=== PATIENT | male | born 1940 | race Caucasian/White ===

== ENCOUNTER 2020-09-17 18:29 | Inpatient (IN) | payer OTHER ==
[2020-09-17 18:36] VITALS: BMI 27.3
[2020-09-17 20:08] LABS: BASO % 0.8 % (0-2.0); EOS % 3.1 % (0-4.5); HEMOGLOBIN 10.3 GM/dL (11.7-16.9); LYMPH % 26.5 % (8-40); MCHC 31.2 g/dl (32.0-35.9); MEAN CELL VOLUME 76.8 fl (80-96); MONO % 8.1 % (3.8-10.2); NEUT % 61.5 % (42.8-82.8); PLATELET COUNT 281 K/MM3 (134-434); RBC 4.29 M/mm3 (4.00-5.60); RDW 16.1 % (11.9-15.9); WHITE BLOOD COUNT 10.8 K/mm3 (4.0-10.0)
[2020-09-17 20:15] LABS: INR 0.96 (0.83-1.09); PROTHROMBIN TIME (PATIENT) 11.6 SEC (9.7-13.0)
[2020-09-17] MEDS ORDERED: FOLIC ACID INJECTION - 1 MG, THIAMINE HCL 100 MG, MULTIVIT INJECTION ADULT 10 ML in SOD... IVPB ONE (20:25)
[2020-09-17 20:47] LABS: POTASSIUM 5.8 mmol/L (3.5-5.1)
[2020-09-17 20:49] LABS: CALCIUM 8.9 mg/dL (8.5-10.1)
[2020-09-17 20:50] LABS: ALBUMIN 3.4 g/dl (3.4-5.0)
[2020-09-17 20:53] LABS: CREATININE 1.4 mg/dL (0.55-1.3)
[2020-09-17 20:54] LABS: BILIRUBIN,TOTAL 0.4 mg/dL (0.2-1); TOT PROT 6.7 g/dl (6.4-8.2)
[2020-09-17 20:55] LABS: BLOOD UREA NITROGEN 26.6 mg/dL (7-18)
[2020-09-17 21:01] LABS: PH,URINE 5.5 (5.0-8.0); URINE APPEARANCE CLEAR; URINE BILIRUBIN NEGATIVE (NEGATIVE); URINE COLOR YELLOW; URINE GLUCOSE (UA) NEGATIVE (NEGATIVE); URINE KETONE TRACE (NEGATIVE); URINE LEUK ESTERASE NEGATIVE (NEGATIVE); URINE NITRITE NEGATIVE (NEGATIVE); URINE PROTEIN TRACE (NEGATIVE); URINE UROBILINOGEN 0.2 mg/dL (0.2-1.0)
[2020-09-17] MEDS ORDERED: LACTATED RINGERS SOLUTION 1000 ML INFUS.BAG IV ONE (21:47)
[2020-09-17] MEDS ORDERED: SODIUM CHLORIDE 1,000 ML IV SCH (22:00)
[2020-09-18] MEDS ORDERED: LORazepam 2 MG/ML SDV VIAL IVPUSH ONE ×2 (00:15→00:34)
[2020-09-18] MEDS ORDERED: LORazepam 2 MG/ML SDV VIAL ONE (00:36)
[2020-09-18 01:01] LABS: CREATININE 1.3 mg/dL (0.55-1.3)
[2020-09-18 01:03] LABS: CALCIUM 8.2 mg/dL (8.5-10.1)
[2020-09-18] MEDS ORDERED: DEXTROSE 50%-WATER - 25 GM/50 ML VIAL IVPUSH ONE (02:19)
[2020-09-18] MEDS ORDERED: DEXTROSE 50%-WATER 25 GM/50 ML DISP.SYRIN ONE (02:20)
[2020-09-18] MEDS: DEXTROSE 5%-0.45% SALINE 1,000 ML IV SCH (04:14)
[2020-09-18] MEDS ORDERED: MAGNESIUM SULF 50% (8.12 MEQ/2 ML-1 GM VIAL) IVPB ONE (05:08)
[2020-09-18] MEDS ORDERED: MAGNESIUM SULFATE IN WATER 2 GM/50 ML IVPB IVPB ONE (05:09)
[2020-09-18 05:37] LABS: POTASSIUM 5.1 mmol/L (3.5-5.1)
[2020-09-18 05:39] LABS: ALBUMIN 2.9 g/dl (3.4-5.0); BLOOD UREA NITROGEN 29.3 mg/dL (7-18); CALCIUM 8.6 mg/dL (8.5-10.1)
[2020-09-18 05:42] LABS: CREATININE 1.3 mg/dL (0.55-1.3)
[2020-09-18 05:43] LABS: PHOSPHOROUS 3.2 mg/dL (2.5-4.9)
[2020-09-18 05:44] LABS: BILIRUBIN,TOTAL 0.4 mg/dL (0.2-1); TOT PROT 5.8 g/dl (6.4-8.2)
[2020-09-18] MEDS ORDERED: CARBIDOPA LEVODOPA PO SCH (06:00)
[2020-09-18 06:15] LABS: BASO % 0.6 % (0-2.0); EOS % 4.3 % (0-4.5); HEMATOCRIT 29.4 % (35.4-49); HEMOGLOBIN 9.5 GM/dL (11.7-16.9); LYMPH % 34.7 % (8-40); MCH 24.2 pg (25.7-33.7); MCHC 32.3 g/dl (32.0-35.9); MONO % 8.2 % (3.8-10.2); NEUT % 52.2 % (42.8-82.8); PLATELET COUNT 228 K/MM3 (134-434); RBC 3.93 M/mm3 (4.00-5.60); RDW 16.5 % (11.9-15.9); WHITE BLOOD COUNT 9.1 K/mm3 (4.0-10.0)
[2020-09-18] MEDS ORDERED: CARBIDOPA/LEVODOPA 25/100 TABLET (FP) ONE (06:52)
[2020-09-18] MEDS: CARBIDOPA/LEVODOPA 25/100 TABLET (FP) PO SCH ×3 (06:53→21:54)
[2020-09-18] MEDS ORDERED: CLOPIDOGREL BISULFATE 75 MG TABLET (FP) ONE (08:23)
[2020-09-18] MEDS ORDERED: LOSARTAN POTASSIUM 50 MG TABLET ONE (08:23)
[2020-09-18] MEDS ORDERED: FAMOTIDINE 20 MG TABLET ONE (08:23)
[2020-09-18] MEDS: LOSARTAN POTASSIUM 50 MG TABLET PO SCH (09:39)
[2020-09-18] MEDS: CLOPIDOGREL BISULFATE 75 MG TABLET (FP) PO SCH (09:39)
[2020-09-18] MEDS: FAMOTIDINE 20 MG TABLET PO SCH (09:39)
[2020-09-18] MEDS ORDERED: CLOPIDOGREL 75 MG PO SCH (10:00)
[2020-09-18] MEDS ORDERED: DONEPEZIL HCL 10 MG PO SCH (10:00)
[2020-09-18] MEDS ORDERED: HEPARIN NA (PORCINE) 5,000 UNITS/ML 1ML VIAL SQ SCH (10:00)
[2020-09-18 20:58] LABS: PH,URINE 7.5 (5.0-8.0); URINE APPEARANCE CLEAR; URINE BILIRUBIN NEGATIVE (NEGATIVE); URINE COLOR YELLOW; URINE GLUCOSE (UA) NEGATIVE (NEGATIVE); URINE KETONE NEGATIVE (NEGATIVE); URINE LEUK ESTERASE NEGATIVE (NEGATIVE); URINE NITRITE NEGATIVE (NEGATIVE); URINE PROTEIN NEGATIVE (NEGATIVE); URINE UROBILINOGEN 0.2 mg/dL (0.2-1.0)
[2020-09-18] MEDS: ATORVASTATIN CA 40 MG TABLET (FP) PO SCH (21:48)
[2020-09-18] MEDS: DONEPEZIL HCL 10 MG TABLET (FP) PO SCH (21:54)
[2020-09-19] MEDS: DEXTROSE 5%-0.45% SALINE 1,000 ML IV SCH (04:00)
[2020-09-19] MEDS: CARBIDOPA/LEVODOPA 25/100 TABLET (FP) PO SCH ×5 (05:26→21:39)
[2020-09-19 07:30] LABS: BASO % 0.5 % (0-2.0); HEMATOCRIT 32.2 % (35.4-49); HEMOGLOBIN 10.2 GM/dL (11.7-16.9); LYMPH % 27.5 % (8-40); MCH 23.9 pg (25.7-33.7); MCHC 31.6 g/dl (32.0-35.9); MEAN CELL VOLUME 75.6 fl (80-96); MEAN PLT VOLUME 9.2 fl (7.5-11.1); MONO % 8.4 % (3.8-10.2); NEUT % 60.6 % (42.8-82.8); PLATELET COUNT 257 K/MM3 (134-434); RBC 4.26 M/mm3 (4.00-5.60); RDW 16.5 % (11.9-15.9); WHITE BLOOD COUNT 9.7 K/mm3 (4.0-10.0)
[2020-09-19 07:48] LABS: CHLORIDE 103 mmol/L (98-107); POTASSIUM 4.1 mmol/L (3.5-5.1); SODIUM 136 mmol/L (136-145)
[2020-09-19 07:52] LABS: CALCIUM 8.7 mg/dL (8.5-10.1)
[2020-09-19 07:53] LABS: ANION GAP 6 MMOL/L (8-16); BLOOD UREA NITROGEN 21.4 mg/dL (7-18); CO2 26 mmol/L (21-32); GLUCOSE,RANDOM 80 mg/dL (74-106); MAGNESIUM 2.2 mg/dL (1.8-2.4)
[2020-09-19 07:55] LABS: PHOSPHOROUS 4.2 mg/dL (2.5-4.9)
[2020-09-19 07:56] LABS: CREATININE 1.2 mg/dL (0.55-1.3); SGOT/AST 15 U/L (15-37); SGPT/ALT < 6 U/L (13-61)
[2020-09-19 07:57] LABS: BILIRUBIN,TOTAL 1.1 mg/dL (0.2-1); TOT PROT 6.3 g/dl (6.4-8.2)
[2020-09-19 07:58] LABS: ALK PHOS 112 U/L (45-117)
[2020-09-19] MEDS: CLOPIDOGREL BISULFATE 75 MG TABLET (FP) PO SCH (09:23)
[2020-09-19] MEDS: FAMOTIDINE 20 MG TABLET PO SCH (09:23)
[2020-09-19] MEDS: LOSARTAN POTASSIUM 50 MG TABLET PO SCH (09:24)
[2020-09-19] MEDS: DONEPEZIL HCL 10 MG TABLET (FP) PO SCH (21:39)
[2020-09-19] MEDS: ATORVASTATIN CA 40 MG TABLET (FP) PO SCH (21:39)
[2020-09-20] MEDS: CLOPIDOGREL BISULFATE 75 MG TABLET (FP) PO SCH (10:13)
[2020-09-20] MEDS: CARBIDOPA/LEVODOPA 25/100 TABLET (FP) PO SCH ×4 (10:13→21:13)
[2020-09-20] MEDS: LOSARTAN POTASSIUM 50 MG TABLET PO SCH (10:14)
[2020-09-20] MEDS: DEXTROSE 5%-0.45% SALINE 1,000 ML IV SCH (10:15)
[2020-09-20] MEDS: CITALOPRAM HYDROBROMIDE 20 MG TABLET PO SCH (11:30)
[2020-09-20] MEDS: FAMOTIDINE 20 MG TABLET PO SCH (11:31)
[2020-09-20] MEDS: ATORVASTATIN CA 40 MG TABLET (FP) PO SCH (21:12)
[2020-09-20] MEDS: DONEPEZIL HCL 10 MG TABLET (FP) PO SCH (21:12)
[2020-09-21] MEDS: CLOPIDOGREL BISULFATE 75 MG TABLET (FP) PO SCH (09:50)
[2020-09-21] MEDS: CARBIDOPA/LEVODOPA 25/100 TABLET (FP) PO SCH ×4 (10:06→21:00)
[2020-09-21] MEDS: CITALOPRAM HYDROBROMIDE 20 MG TABLET PO SCH (10:07)
[2020-09-21] MEDS: LOSARTAN POTASSIUM 50 MG TABLET PO SCH (10:07)
[2020-09-21] MEDS: FAMOTIDINE 20 MG TABLET PO SCH (10:07)
[2020-09-21] MEDS: ATORVASTATIN CA 40 MG TABLET (FP) PO SCH (21:00)
[2020-09-21] MEDS: DONEPEZIL HCL 10 MG TABLET (FP) PO SCH (21:00)
[2020-09-22] MEDS: FAMOTIDINE 20 MG TABLET PO SCH (09:47)
[2020-09-22] MEDS: LOSARTAN POTASSIUM 50 MG TABLET PO SCH (09:48)
[2020-09-22] MEDS: CLOPIDOGREL BISULFATE 75 MG TABLET (FP) PO SCH (09:48)
[2020-09-22] MEDS: CITALOPRAM HYDROBROMIDE 20 MG TABLET PO SCH (09:48)
[2020-09-22] MEDS: CARBIDOPA/LEVODOPA 25/100 TABLET (FP) PO SCH ×4 (09:48→21:38)
[2020-09-22] MEDS: ATORVASTATIN CA 40 MG TABLET (FP) PO SCH (21:39)
[2020-09-22] MEDS: DONEPEZIL HCL 10 MG TABLET (FP) PO SCH (21:39)
[2020-09-23] MEDS: CARBIDOPA/LEVODOPA 25/100 TABLET (FP) PO SCH ×4 (09:26→21:17)
[2020-09-23] MEDS: CITALOPRAM HYDROBROMIDE 20 MG TABLET PO SCH (09:26)
[2020-09-23] MEDS: LOSARTAN POTASSIUM 50 MG TABLET PO SCH (09:29)
[2020-09-23] MEDS: CLOPIDOGREL BISULFATE 75 MG TABLET (FP) PO SCH (09:29)
[2020-09-23] MEDS: FAMOTIDINE 20 MG TABLET PO SCH (09:29)
[2020-09-23] MEDS: ATORVASTATIN CA 40 MG TABLET (FP) PO SCH (21:17)
[2020-09-23] MEDS: DONEPEZIL HCL 10 MG TABLET (FP) PO SCH (21:17)
[2020-09-23] MEDS ORDERED: INSULIN (NOVOLOG) ASPART 100 UNITS/ML 10ML VIAL SQ ONE (21:48)
[2020-09-24] MEDS: CARBIDOPA/LEVODOPA 25/100 TABLET (FP) PO SCH ×4 (09:06→21:04)
[2020-09-24] MEDS: CLOPIDOGREL BISULFATE 75 MG TABLET (FP) PO SCH (09:06)
[2020-09-24] MEDS: LOSARTAN POTASSIUM 50 MG TABLET PO SCH (09:06)
[2020-09-24] MEDS: CITALOPRAM HYDROBROMIDE 20 MG TABLET PO SCH (09:06)
[2020-09-24] MEDS: FAMOTIDINE 20 MG TABLET PO SCH (09:06)
[2020-09-24] MEDS: INSULIN SLIDING SCALE (NOVOLOG) 1 VIAL SQ SCH ×3 (12:37→21:14)
[2020-09-24] MEDS ORDERED: INSULIN (NOVOLOG) ASPART 100 UNITS/ML 10ML VIAL ONE (17:24)
[2020-09-24] MEDS: ATORVASTATIN CA 40 MG TABLET (FP) PO SCH (21:04)
[2020-09-24] MEDS: DONEPEZIL HCL 10 MG TABLET (FP) PO SCH (21:05)
[2020-09-25] MEDS: INSULIN SLIDING SCALE (NOVOLOG) 1 VIAL SQ SCH ×4 (06:06→21:45)
[2020-09-25] MEDS: LOSARTAN POTASSIUM 50 MG TABLET PO SCH (09:59)
[2020-09-25] MEDS: CITALOPRAM HYDROBROMIDE 20 MG TABLET PO SCH (09:59)
[2020-09-25] MEDS: CARBIDOPA/LEVODOPA 25/100 TABLET (FP) PO SCH ×4 (10:00→21:43)
[2020-09-25] MEDS: FAMOTIDINE 20 MG TABLET PO SCH (10:00)
[2020-09-25] MEDS: CLOPIDOGREL BISULFATE 75 MG TABLET (FP) PO SCH (10:00)
[2020-09-25] MEDS: ATORVASTATIN CA 40 MG TABLET (FP) PO SCH (21:43)
[2020-09-25] MEDS: DONEPEZIL HCL 10 MG TABLET (FP) PO SCH (21:43)
[2020-09-26] MEDS: INSULIN SLIDING SCALE (NOVOLOG) 1 VIAL SQ SCH ×4 (06:05→21:49)
[2020-09-26 08:37] LABS: HEMATOCRIT 33.4 % (35.4-49); HEMOGLOBIN 10.4 GM/dL (11.7-16.9); MCH 23.5 pg (25.7-33.7); MCHC 31.1 g/dl (32.0-35.9); MEAN CELL VOLUME 75.6 fl (80-96); MEAN PLT VOLUME 9.3 fl (7.5-11.1); PLATELET COUNT 264 K/MM3 (134-434); RBC 4.42 M/mm3 (4.00-5.60); RDW 17.1 % (11.9-15.9); WHITE BLOOD COUNT 15.2 K/mm3 (4.0-10.0)
[2020-09-26 09:06] LABS: POTASSIUM 4.2 mmol/L (3.5-5.1)
[2020-09-26 09:08] LABS: CALCIUM 8.9 mg/dL (8.5-10.1)
[2020-09-26 09:10] LABS: BLOOD UREA NITROGEN 42.9 mg/dL (7-18)
[2020-09-26] MEDS: LOSARTAN POTASSIUM 50 MG TABLET PO SCH (09:10)
[2020-09-26] MEDS: FAMOTIDINE 20 MG TABLET PO SCH (09:10)
[2020-09-26] MEDS: CARBIDOPA/LEVODOPA 25/100 TABLET (FP) PO SCH ×4 (09:10→21:49)
[2020-09-26] MEDS: CLOPIDOGREL BISULFATE 75 MG TABLET (FP) PO SCH (09:10)
[2020-09-26] MEDS: CITALOPRAM HYDROBROMIDE 20 MG TABLET PO SCH (09:10)
[2020-09-26 09:12] LABS: CREATININE 1.4 mg/dL (0.55-1.3)
[2020-09-26] MEDS ORDERED: INSULIN (NOVOLOG) ASPART 100 UNITS/ML 10ML VIAL SQ ONE (12:30)
[2020-09-26 13:48] LABS: GLUCOSE,RANDOM 487 mg/dL (74-106)
[2020-09-26] MEDS: ATORVASTATIN CA 40 MG TABLET (FP) PO SCH (21:49)
[2020-09-26] MEDS: DONEPEZIL HCL 10 MG TABLET (FP) PO SCH (21:49)
[2020-09-27] MEDS: INSULIN SLIDING SCALE (NOVOLOG) 1 VIAL SQ SCH ×4 (06:40→21:48)
[2020-09-27] MEDS: CLOPIDOGREL BISULFATE 75 MG TABLET (FP) PO SCH (11:17)
[2020-09-27] MEDS: INSULIN (LEVEMIR) 100 UNITS/ML UNITS SQ SCH ×2 (11:17→21:47)
[2020-09-27] MEDS: CARBIDOPA/LEVODOPA 25/100 TABLET (FP) PO SCH ×4 (11:17→23:49)
[2020-09-27] MEDS: FAMOTIDINE 20 MG TABLET PO SCH (11:17)
[2020-09-27] MEDS: CITALOPRAM HYDROBROMIDE 20 MG TABLET PO SCH (11:17)
[2020-09-27] MEDS: LOSARTAN POTASSIUM 50 MG TABLET PO SCH (11:17)
[2020-09-27 21:29] LABS: URINE APPEARANCE Clear; URINE BILIRUBIN Negative (NEGATIVE); URINE COLOR Yellow; URINE GLUCOSE (UA) 2+ (NEGATIVE); URINE KETONE Negative (NEGATIVE); URINE LEUK ESTERASE Negative (NEGATIVE); URINE NITRITE Negative (NEGATIVE); URINE PROTEIN Negative (NEGATIVE); URINE UROBILINOGEN 0.2 mg/dL (0.2-1.0)
[2020-09-27] MEDS ORDERED: PT OWN MED DRAWER 7, Y5N ONE (21:43)
[2020-09-27] MEDS: DONEPEZIL HCL 10 MG TABLET (FP) PO SCH (21:44)
[2020-09-27] MEDS: ATORVASTATIN CA 40 MG TABLET (FP) PO SCH (21:44)
[2020-09-28] MEDS: INSULIN SLIDING SCALE (NOVOLOG) 1 VIAL SQ SCH ×4 (06:21→17:08)
[2020-09-28] MEDS: INSULIN (LEVEMIR) 100 UNITS/ML UNITS SQ SCH (06:22)
[2020-09-28 08:13] LABS: HEMATOCRIT 33.4 % (35.4-49); HEMOGLOBIN 10.7 GM/dL (11.7-16.9); MCH 24.1 pg (25.7-33.7); MEAN CELL VOLUME 75.2 fl (80-96); MEAN PLT VOLUME 9.2 fl (7.5-11.1); PLATELET COUNT 295 K/MM3 (134-434); RBC 4.44 M/mm3 (4.00-5.60); RDW 16.8 % (11.9-15.9)
[2020-09-28 08:35] LABS: BLOOD UREA NITROGEN 34.8 mg/dL (7-18)
[2020-09-28 08:39] LABS: CREATININE 1.3 mg/dL (0.55-1.3)
[2020-09-28 08:41] LABS: CALCIUM 9.3 mg/dL (8.5-10.1)
[2020-09-28] MEDS: CLOPIDOGREL BISULFATE 75 MG TABLET (FP) PO SCH (10:41)
[2020-09-28] MEDS: CITALOPRAM HYDROBROMIDE 20 MG TABLET PO SCH (10:41)
[2020-09-28] MEDS: FAMOTIDINE 20 MG TABLET PO SCH (10:41)
[2020-09-28] MEDS: CARBIDOPA/LEVODOPA 25/100 TABLET (FP) PO SCH ×3 (10:41→18:09)
[2020-09-28] MEDS: LOSARTAN POTASSIUM 50 MG TABLET PO SCH (10:41)
[2020-09-28 15:49] VITALS: TEMP 97.5
[2020-09-28 20:16] VITALS: BP 127/76; PULSE 73
== END 2020-09-28 19:20 | disposition home health service (06) | DRG 56 ==
LOC: JER 18:29 → MERGE 22:04 → JERBED 22:04 → J6WEST-2 09-18 11:29 → J8W 09-23 16:47
PROVIDERS: ADMIT Internal Medicine; ATTEND Family Medicine
DX: G20 Parkinson's disease (principal); G93.41 Metabolic encephalopathy; E87.2 Acidosis; N17.9 Acute kidney failure, unspecified; I25.10 Atherosclerotic heart disease of native coronary artery without angina pectoris; F02.80 Dementia in other diseases classified elsewhere, unspecified severity, without behavioral disturbance, psychotic disturbance, mood disturbance, and anxiety; E11.9 Type 2 diabetes mellitus without complications; M54.5 Low back pain; E78.5 Hyperlipidemia, unspecified; R29.6 Repeated falls; E87.5 Hyperkalemia; D50.9 Iron deficiency anemia, unspecified; R10.30 Lower abdominal pain, unspecified; R26.81 Unsteadiness on feet; I12.9 Hypertensive chronic kidney disease with stage 1 through stage 4 chronic kidney disease, or unspecified chronic kidney disease; E11.22 Type 2 diabetes mellitus with diabetic chronic kidney disease; N18.9 Chronic kidney disease, unspecified; Z86.73 Personal history of transient ischemic attack (TIA), and cerebral infarction without residual deficits; Z95.5 Presence of coronary angioplasty implant and graft
CPT/HCPCS: 36415; 70450-TC; 71045-TC-FY; 72125-TC; 74176-TC; 76775-TC; 80048; 80053; 80061; 81003; 82550; 82553; 82565; 82607; 82728; 82947; 82962; 83036; 83540; 83550; 83605; 83721; 83735; 84100; 84156; 84300; 84443; 84484; 85025; 85027; 85610; 85730; 87040; 87086; 87186; 87205; 93005; 93010; 97116-GP; 97161-GP; 99285-25; C9803; U0003

== ENCOUNTER 2020-09-30 15:57 | Inpatient (IN) | payer OTHER ==
[2020-09-30 16:45] VITALS: BMI 40.7
[2020-09-30 17:17] LABS: BASO % 0.8 % (0-2.0); EOS % 0.7 % (0-4.5); HEMATOCRIT 34.5 % (35.4-49); HEMOGLOBIN 10.7 GM/dL (11.7-16.9); LYMPH % 11.2 % (8-40); MCH 23.4 pg (25.7-33.7); MCHC 30.9 g/dl (32.0-35.9); MEAN CELL VOLUME 75.8 fl (80-96); MONO % 6.4 % (3.8-10.2); NEUT % 80.9 % (42.8-82.8); PLATELET COUNT 344 K/MM3 (134-434); RBC 4.54 M/mm3 (4.00-5.60); WHITE BLOOD COUNT 14.3 K/mm3 (4.0-10.0)
[2020-09-30 17:20] LABS: EPI CELLS 6 /uL (0-25.1); HYALINE CASTS 7 /uL (0-3.1); URINE APPEARANCE CLOUDY; URINE BACTERIA 658 /uL (0-1359); URINE BILIRUBIN NEGATIVE (NEGATIVE); URINE COLOR YELLOW; URINE GLUCOSE (UA) NEGATIVE (NEGATIVE); URINE KETONE TRACE (NEGATIVE); URINE LEUK ESTERASE 1+ (NEGATIVE); URINE NITRITE NEGATIVE (NEGATIVE); URINE PROTEIN 1+ (NEGATIVE); URINE RBC 48 /uL (0-23.9); URINE UROBILINOGEN 0.2 mg/dL (0.2-1.0); URINE WBC 164 /uL (0-25.8)
[2020-09-30] MEDS ORDERED: SODIUM CHLORIDE 3,538 ML IV ONE (17:25)
[2020-09-30 17:29] LABS: INR 1.04 (0.83-1.09); PROTHROMBIN TIME (PATIENT) 12.8 SEC (9.7-13.0)
[2020-09-30 17:31] LABS: ACTIVATED PTT 34.1 SECONDS (25.2-36.5)
[2020-09-30 17:34] LABS: POTASSIUM 4.6 mmol/L (3.5-5.1)
[2020-09-30 17:36] LABS: CALCIUM 8.5 mg/dL (8.5-10.1)
[2020-09-30 17:37] LABS: ALBUMIN 2.8 g/dl (3.4-5.0); BLOOD UREA NITROGEN 25.3 mg/dL (7-18)
[2020-09-30] MEDS ORDERED: CEFTRIAXONE 1,000 MG in DEXTROSE 5%-WATER - 50 ML IVPB ONE (17:38)
[2020-09-30 17:40] LABS: CREATININE 1.4 mg/dL (0.55-1.3)
[2020-09-30 17:42] LABS: BILIRUBIN,TOTAL 0.4 mg/dL (0.2-1); TOT PROT 6.4 g/dl (6.4-8.2)
[2020-09-30 17:49] LABS: VENOUS BASE EXCESS -2.5 mmol/L (-2-2); VENOUS O2 SATURATION 42.5 % (70-80); VENOUS PH 7.328 (7.310-7.410)
[2020-09-30] MEDS ORDERED: CEFTRIAXONE 1 GM/50 ML BAG ONE (17:50)
[2020-09-30] MEDS ORDERED: LACTATED RINGERS SOLUTION 1000 ML INFUS.BAG IV ONE (18:51)
[2020-09-30] MEDS ORDERED: CARBIDOPA/LEVODOPA 25/100 TABLET (FP) ONE (22:56)
[2020-09-30] MEDS ORDERED: ATORVASTATIN CA 40 MG TABLET (FP) ONE (22:56)
[2020-09-30] MEDS: CARBIDOPA/LEVODOPA 25/100 TABLET (FP) PO SCH (23:03)
[2020-09-30] MEDS: ATORVASTATIN CA 40 MG TABLET (FP) PO SCH (23:03)
[2020-10-01] MEDS ORDERED: cefTRIAXone SODIUM 1 GM VIAL ONE (08:51)
[2020-10-01] MEDS ORDERED: DEXTROSE 5%-WATER - 50 ML IVPB ONE (08:52)
[2020-10-01] MEDS ORDERED: DEXTROSE 5%-NORMAL SALINE 1,000 ML IV SCH (09:00)
[2020-10-01 09:19] LABS: BASO % 0.6 % (0-2.0); EOS % 1.5 % (0-4.5); HEMATOCRIT 32.8 % (35.4-49); HEMOGLOBIN 10.6 GM/dL (11.7-16.9); LYMPH % 27.4 % (8-40); MCH 24.1 pg (25.7-33.7); MCHC 32.2 g/dl (32.0-35.9); MEAN CELL VOLUME 74.9 fl (80-96); MEAN PLT VOLUME 9.2 fl (7.5-11.1); MONO % 8.9 % (3.8-10.2); NEUT % 61.6 % (42.8-82.8); PLATELET COUNT 351 K/MM3 (134-434); RBC 4.38 M/mm3 (4.00-5.60); RDW 17.1 % (11.9-15.9); WHITE BLOOD COUNT 10.5 K/mm3 (4.0-10.0)
[2020-10-01 09:27] LABS: POTASSIUM 4.6 mmol/L (3.5-5.1)
[2020-10-01] MEDS: CITALOPRAM HYDROBROMIDE 20 MG TABLET PO SCH (09:33)
[2020-10-01] MEDS: CLOPIDOGREL BISULFATE 75 MG TABLET (FP) PO SCH (09:33)
[2020-10-01] MEDS: CARBIDOPA/LEVODOPA 25/100 TABLET (FP) PO SCH ×4 (09:33→21:09)
[2020-10-01] MEDS: LOSARTAN POTASSIUM 50 MG TABLET PO SCH (09:33)
[2020-10-01] MEDS: FAMOTIDINE 20 MG TABLET PO SCH (09:33)
[2020-10-01] MEDS: CEFTRIAXONE 1 GM in DEXTROSE 5%-WATER - 50 ML IVPB SCH (09:34)
[2020-10-01 09:54] LABS: BILIRUBIN,TOTAL 0.4 mg/dL (0.2-1)
[2020-10-01 09:55] LABS: TOT PROT 6.2 g/dl (6.4-8.2)
[2020-10-01 10:12] LABS: ALBUMIN 2.6 g/dl (3.4-5.0); BLOOD UREA NITROGEN 26.8 mg/dL (7-18); CALCIUM 8.8 mg/dL (8.5-10.1)
[2020-10-01 10:13] LABS: CREATININE 1.3 mg/dL (0.55-1.3)
[2020-10-01] MEDS ORDERED: SODIUM CHLORIDE 0.45% 1,000 ML IV SCH (14:00)
[2020-10-01] MEDS ORDERED: PT OWN MED DRAWER 7, Y5N ONE (18:47)
[2020-10-01] MEDS: ATORVASTATIN CA 40 MG TABLET (FP) PO SCH (21:09)
[2020-10-01] MEDS: INSULIN SLIDING SCALE (NOVOLOG) 1 VIAL SQ SCH (23:15)
[2020-10-02] MEDS: INSULIN SLIDING SCALE (NOVOLOG) 1 VIAL SQ SCH ×4 (06:14→21:11)
[2020-10-02] MEDS ORDERED: DEXTROSE 5%-WATER - 50 ML IVPB ONE (09:06)
[2020-10-02] MEDS ORDERED: cefTRIAXone SODIUM 1 GM VIAL ONE (09:06)
[2020-10-02] MEDS: FAMOTIDINE 20 MG TABLET PO SCH (10:20)
[2020-10-02] MEDS: CITALOPRAM HYDROBROMIDE 20 MG TABLET PO SCH (10:20)
[2020-10-02] MEDS: CEFTRIAXONE 1 GM in DEXTROSE 5%-WATER - 50 ML IVPB SCH (10:20)
[2020-10-02] MEDS: LOSARTAN POTASSIUM 50 MG TABLET PO SCH (10:20)
[2020-10-02] MEDS: CARBIDOPA/LEVODOPA 25/100 TABLET (FP) PO SCH ×3 (10:20→18:13)
[2020-10-02] MEDS: CLOPIDOGREL BISULFATE 75 MG TABLET (FP) PO SCH (10:20)
[2020-10-02] MEDS: ATORVASTATIN CA 40 MG TABLET (FP) PO SCH (21:11)
[2020-10-03] MEDS: INSULIN SLIDING SCALE (NOVOLOG) 1 VIAL SQ SCH ×4 (06:00→21:15)
[2020-10-03] MEDS ORDERED: DEXTROSE 5%-WATER - 50 ML IVPB ONE (09:32)
[2020-10-03] MEDS ORDERED: cefTRIAXone SODIUM 1 GM VIAL ONE (09:32)
[2020-10-03] MEDS: CEFTRIAXONE 1 GM in DEXTROSE 5%-WATER - 50 ML IVPB SCH (09:39)
[2020-10-03] MEDS: CITALOPRAM HYDROBROMIDE 20 MG TABLET PO SCH (09:39)
[2020-10-03] MEDS: FAMOTIDINE 20 MG TABLET PO SCH (09:39)
[2020-10-03] MEDS: CLOPIDOGREL BISULFATE 75 MG TABLET (FP) PO SCH (09:39)
[2020-10-03] MEDS: LOSARTAN POTASSIUM 50 MG TABLET PO SCH (09:39)
[2020-10-03] MEDS: FERROUS SO4 325 MG TABLET (FP) PO SCH (09:39)
[2020-10-03] MEDS ORDERED: INSULIN (NOVOLOG) ASPART 100 UNITS/ML 10ML VIAL ONE (20:57)
[2020-10-03] MEDS: ATORVASTATIN CA 40 MG TABLET (FP) PO SCH (21:15)
[2020-10-04] MEDS: INSULIN SLIDING SCALE (NOVOLOG) 1 VIAL SQ SCH ×4 (06:01→21:46)
[2020-10-04] MEDS ORDERED: cefTRIAXone SODIUM 1 GM VIAL ONE (09:11)
[2020-10-04] MEDS ORDERED: DEXTROSE 5%-WATER - 50 ML IVPB ONE (09:11)
[2020-10-04] MEDS: FAMOTIDINE 20 MG TABLET PO SCH (09:25)
[2020-10-04] MEDS: FERROUS SO4 325 MG TABLET (FP) PO SCH (09:25)
[2020-10-04] MEDS: LOSARTAN POTASSIUM 50 MG TABLET PO SCH (09:26)
[2020-10-04] MEDS: CEFTRIAXONE 1 GM in DEXTROSE 5%-WATER - 50 ML IVPB SCH (09:26)
[2020-10-04] MEDS: CLOPIDOGREL BISULFATE 75 MG TABLET (FP) PO SCH (09:26)
[2020-10-04] MEDS: CITALOPRAM HYDROBROMIDE 20 MG TABLET PO SCH (09:26)
[2020-10-04] MEDS: metoPROLOL SUCCINATE 25 MG TAB.SR.24H (FP) PO SCH (12:19)
[2020-10-04] MEDS ORDERED: INSULIN (NOVOLOG) ASPART 100 UNITS/ML 10ML VIAL ONE (21:42)
[2020-10-04] MEDS: AMOXICILLIN 500 MG CAPSULE (FP) PO SCH (21:46)
[2020-10-04] MEDS: ATORVASTATIN CA 40 MG TABLET (FP) PO SCH (21:46)
[2020-10-05] MEDS: AMOXICILLIN 500 MG CAPSULE (FP) PO SCH ×3 (07:18→23:58)
[2020-10-05] MEDS: INSULIN SLIDING SCALE (NOVOLOG) 1 VIAL SQ SCH ×4 (07:20→23:59)
[2020-10-05] MEDS: CITALOPRAM HYDROBROMIDE 20 MG TABLET PO SCH (09:53)
[2020-10-05] MEDS: FERROUS SO4 325 MG TABLET (FP) PO SCH (09:53)
[2020-10-05] MEDS: FAMOTIDINE 20 MG TABLET PO SCH (09:53)
[2020-10-05] MEDS: metoPROLOL SUCCINATE 25 MG TAB.SR.24H (FP) PO SCH (09:53)
[2020-10-05] MEDS: CLOPIDOGREL BISULFATE 75 MG TABLET (FP) PO SCH (09:53)
[2020-10-05] MEDS: LOSARTAN POTASSIUM 50 MG TABLET PO SCH (09:53)
[2020-10-05 13:46] LABS: HEMATOCRIT 34.8 % (35.4-49); LYMPH % 23.5 % (8-40); MCH 23.7 pg (25.7-33.7); MCHC 31.6 g/dl (32.0-35.9); MEAN CELL VOLUME 75.1 fl (80-96); MONO % 6.1 % (3.8-10.2); NEUT % 68.4 % (42.8-82.8); PLATELET COUNT 385 K/MM3 (134-434); RBC 4.63 M/mm3 (4.00-5.60); RDW 17.5 % (11.9-15.9); WHITE BLOOD COUNT 8.8 K/mm3 (4.0-10.0)
[2020-10-05 14:28] LABS: ALBUMIN 2.8 g/dl (3.4-5.0); ALK PHOS 131 U/L (45-117); ANION GAP 7 MMOL/L (8-16); BILIRUBIN,TOTAL 0.5 mg/dL (0.2-1); BLOOD UREA NITROGEN 18.3 mg/dL (7-18); CHLORIDE 104 mmol/L (98-107); CO2 27 mmol/L (21-32); CREATININE 1.4 mg/dL (0.55-1.3); GLUCOSE,RANDOM 220 mg/dL (74-106); POTASSIUM 4.6 mmol/L (3.5-5.1); SGOT/AST 12 U/L (15-37); SGPT/ALT < 6 U/L (13-61); SODIUM 137 mmol/L (136-145); TOT PROT 6.2 g/dl (6.4-8.2)
[2020-10-05] MEDS: ATORVASTATIN CA 40 MG TABLET (FP) PO SCH (23:59)
[2020-10-06] MEDS: INSULIN SLIDING SCALE (NOVOLOG) 1 VIAL SQ SCH ×4 (07:02→22:44)
[2020-10-06] MEDS: AMOXICILLIN 500 MG CAPSULE (FP) PO SCH ×3 (07:02→22:44)
[2020-10-06] MEDS: FAMOTIDINE 20 MG TABLET PO SCH (09:43)
[2020-10-06] MEDS: LOSARTAN POTASSIUM 50 MG TABLET PO SCH (09:43)
[2020-10-06] MEDS: CITALOPRAM HYDROBROMIDE 20 MG TABLET PO SCH (09:43)
[2020-10-06] MEDS: FERROUS SO4 325 MG TABLET (FP) PO SCH (09:43)
[2020-10-06] MEDS: metoPROLOL SUCCINATE 25 MG TAB.SR.24H (FP) PO SCH (09:43)
[2020-10-06] MEDS: CLOPIDOGREL BISULFATE 75 MG TABLET (FP) PO SCH (09:43)
[2020-10-06] MEDS: ATORVASTATIN CA 40 MG TABLET (FP) PO SCH (22:44)
[2020-10-07] MEDS: AMOXICILLIN 500 MG CAPSULE (FP) PO SCH ×3 (06:12→22:26)
[2020-10-07] MEDS: INSULIN SLIDING SCALE (NOVOLOG) 1 VIAL SQ SCH ×4 (06:13→22:27)
[2020-10-07] MEDS: CITALOPRAM HYDROBROMIDE 20 MG TABLET PO SCH (09:22)
[2020-10-07] MEDS: CLOPIDOGREL BISULFATE 75 MG TABLET (FP) PO SCH (09:22)
[2020-10-07] MEDS: FERROUS SO4 325 MG TABLET (FP) PO SCH (09:22)
[2020-10-07] MEDS: FAMOTIDINE 20 MG TABLET PO SCH (09:22)
[2020-10-07] MEDS: metoPROLOL SUCCINATE 25 MG TAB.SR.24H (FP) PO SCH (09:22)
[2020-10-07] MEDS: LOSARTAN POTASSIUM 50 MG TABLET PO SCH (09:23)
[2020-10-07] MEDS: ATORVASTATIN CA 40 MG TABLET (FP) PO SCH (22:26)
[2020-10-08] MEDS: INSULIN SLIDING SCALE (NOVOLOG) 1 VIAL SQ SCH ×4 (06:52→22:10)
[2020-10-08] MEDS: AMOXICILLIN 500 MG CAPSULE (FP) PO SCH ×3 (06:52→21:17)
[2020-10-08] MEDS: FERROUS SO4 325 MG TABLET (FP) PO SCH (09:40)
[2020-10-08] MEDS: CLOPIDOGREL BISULFATE 75 MG TABLET (FP) PO SCH (09:40)
[2020-10-08] MEDS: FAMOTIDINE 20 MG TABLET PO SCH (09:40)
[2020-10-08] MEDS: CITALOPRAM HYDROBROMIDE 20 MG TABLET PO SCH (09:40)
[2020-10-08] MEDS: metoPROLOL SUCCINATE 25 MG TAB.SR.24H (FP) PO SCH (09:41)
[2020-10-08] MEDS ORDERED: INSULIN (NOVOLOG) ASPART 100 UNITS/ML 10ML VIAL ONE ×2 (11:14→21:03)
[2020-10-08] MEDS: LOSARTAN POTASSIUM 50 MG TABLET PO SCH (11:23)
[2020-10-08] MEDS: ATORVASTATIN CA 40 MG TABLET (FP) PO SCH (21:17)
[2020-10-09] MEDS: AMOXICILLIN 500 MG CAPSULE (FP) PO SCH ×2 (05:11→13:32)
[2020-10-09] MEDS: INSULIN SLIDING SCALE (NOVOLOG) 1 VIAL SQ SCH ×3 (06:40→16:49)
[2020-10-09] MEDS: LOSARTAN POTASSIUM 50 MG TABLET PO SCH (09:16)
[2020-10-09] MEDS: metoPROLOL SUCCINATE 25 MG TAB.SR.24H (FP) PO SCH (09:16)
[2020-10-09] MEDS: CLOPIDOGREL BISULFATE 75 MG TABLET (FP) PO SCH (09:16)
[2020-10-09] MEDS: FAMOTIDINE 20 MG TABLET PO SCH (09:16)
[2020-10-09] MEDS: FERROUS SO4 325 MG TABLET (FP) PO SCH (09:16)
[2020-10-09] MEDS: CITALOPRAM HYDROBROMIDE 20 MG TABLET PO SCH (09:16)
[2020-10-09 10:49] VITALS: BP 126/73; PULSE 56; TEMP 97.9
== END 2020-10-09 17:39 | DRG 689 ==
LOC: JER 15:57 → JERBED 20:39 → J4W 10-01 02:51 → J6S 10-06 23:58
PROVIDERS: ADMIT Internal Medicine; ATTEND Family Medicine
DX: N39.0 Urinary tract infection, site not specified (principal); G93.41 Metabolic encephalopathy; I47.1 Supraventricular tachycardia; Z68.41 Body mass index [BMI] 40.0-44.9, adult; G20 Parkinson's disease; F02.80 Dementia in other diseases classified elsewhere, unspecified severity, without behavioral disturbance, psychotic disturbance, mood disturbance, and anxiety; I25.10 Atherosclerotic heart disease of native coronary artery without angina pectoris; E78.5 Hyperlipidemia, unspecified; Z86.73 Personal history of transient ischemic attack (TIA), and cerebral infarction without residual deficits; Z79.4 Long term (current) use of insulin; R55 Syncope and collapse; R29.6 Repeated falls; E66.9 Obesity, unspecified; Z20.822 Contact with and (suspected) exposure to COVID-19; E86.0 Dehydration; I12.9 Hypertensive chronic kidney disease with stage 1 through stage 4 chronic kidney disease, or unspecified chronic kidney disease; E11.22 Type 2 diabetes mellitus with diabetic chronic kidney disease; N18.9 Chronic kidney disease, unspecified; D64.9 Anemia, unspecified; H53.462 Homonymous bilateral field defects, left side
CPT/HCPCS: 36415; 70450-TC; 71045-TC-FY; 72125-TC; 80053; 81003; 82550; 82803; 82962; 83605; 84484; 85025; 85610; 85730; 87040; 87086; 87186; 87804; 93005; 93010; 93306-TC; 93880-TC; 97116-GP; 97161-GP; 99285-25; C9803; U0003; U0005